=== PATIENT | male | born 1955 | race Hispanic/Latino ===

== ENCOUNTER → 2024-07-01 08:15 | Outpatient (CLI) | payer OTHER, MEDICARE, SELFPAY ==
--- NOTE | 2024-07-01 08:25 | DI.US.S_ITS ---
PROCEDURE: US CAROTID DOPPLER BI INDICATIONS: BILAT CAROTID BRUITS TECHNIQUE: Color and pulse Doppler interrogation was performed of both carotid systems, with image documentation and velocity measurements. COMPARISON: None. FINDINGS: Stenosis calculations are based on SRU (Society of [employer] in Ultras[employer]) criteria. Right side: Brachial blood pressure: 128/68 mm Hg. Common carotid artery peak systolic velocity: 89 cm/sec. Internal carotid artery peak systolic velocity: 66 cm/sec. Internal carotid artery end diastolic velocity: 18 cm/sec. External carotid artery peak systolic velocity: 126 cm/sec. ICA/CCA peak systolic ratio: 0.7 . Palma scale imaging description: Mild atherosclerotic plaques Percent internal carotid artery stenosis: Less than 50% . Vertebral artery: Flow direction is antegrade. Left side: Brachial blood pressure: 127/72 mm Hg. Common carotid artery peak systolic velocity: 53 cm/sec. Internal carotid artery peak systolic velocity: 84 cm/sec. Internal carotid artery end diastolic velocity: 32 cm/sec. External carotid artery peak systolic velocity: 87 cm/sec. ICA/CCA peak systolic ratio: 1.6 . Palma scale imaging description: Mild atherosclerotic plaques Percent internal carotid artery stenosis: Less than 50% . Vertebral artery: Flow direction is antegrade. IMPRESSION: Less than 50% stenosis of the bilateral internal carotid arteries. Dictated by: Jose Alberto Kimball M.D. on 07/01/2024 at 17:13 Approved by: Jose Alberto Kimball M.D. on 07/01/2024 at 17:15
== END ==
PROVIDERS: Referring Provider Family Medicine; Visit Provider Family Medicine
DX: R09.89 Other specified symptoms and signs involving the circulatory and respiratory systems (principal); I65.23 Occlusion and stenosis of bilateral carotid arteries
CPT/HCPCS: 93880

== ENCOUNTER 2024-12-18 11:07 | Emergency (ER) | payer OTHER, SELFPAY ==
[2024-12-18 11:13] VITALS: BP 131/70; PULSE 84; RESP 16; TEMP 36.3; O2SAT 95; BMI 35.2
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
[2024-12-18 12:59] VITALS: BP 130/68; PULSE 77; RESP 16; O2SAT 99
== END 2024-12-18 12:59 | disposition home or self-care (01) ==
PROVIDERS: Emergency Provider Emergency Medicine
DX: S93.401A Sprain of unspecified ligament of right ankle, initial encounter (principal); S96.911A Strain of unspecified muscle and tendon at ankle and foot level, right foot, initial encounter; V89.2XXA Person injured in unspecified motor-vehicle accident, traffic, initial encounter
CPT/HCPCS: 73610; 99283